=== PATIENT | male | born 1985 | race Caucasian/White ===

== ENCOUNTER 2017-05-12 22:39 | Emergency (ER) | payer BC ==
[~2017-05-12] VITALS: Ht 167.6 cm; Wt 85.2 kg
[2017-05-13 00:31] LABS: HEMATOCRIT 45.7 % (38.0-50.0); MCH 29.5 PG (29.0-34.0); MCHC 33.7 G/DL (30.0-36.0); MCV 87.5 FL (86-99); MEAN PLAT.VOLUME 11.5 uM^3 (9.0-12.4); PLATELET COUNT 197 K/uL (156-360); RBC DIS.WIDTH-CV 13.5 % (11.8-14.6); RBC DIS.WIDTH-SD 43.4 % (39-53); RED BLOOD COUNT 5.22 M/uL (4.00-5.50); WHITE BLOOD COUNT 9.9 K/uL (4.1-10.2)
[2017-05-13 00:42] LABS: CHLORIDE 106 mEq/L (99-109); POTASSIUM 3.8 mEq/L (3.7-5.4); SODIUM 139 mEq/L (136-147)
[2017-05-13 00:44] LABS: GLUCOSE 98 mg/dL (70-99)
[2017-05-13 00:46] LABS: ANION GAP 6 MEQ/L (2-14)
[2017-05-13 00:48] LABS: GFR ESTIMATE (CALCULATED) > 59 mL/min/
[2017-05-13 00:49] LABS: UREA NITROGEN (BUN) 15 mg/dL (9-23)
[2017-05-13 00:50] LABS: URIC ACID 4.2 mg/dL (3.1-9.2)
[2017-05-13 01:16] VITALS: BP 111/76
== END 2017-05-13 01:19 | disposition home or self-care (01) ==
LOC: EME 22:39 → EXP 22:39
PROVIDERS: Emergency Medicine
DX: M79.89 Other specified soft tissue disorders (principal); M79.672 Pain in left foot; F17.200 Nicotine dependence, unspecified, uncomplicated
CPT/HCPCS: 73610; 76882; 80048; 84550; 85027; 99281; 99284